=== PATIENT | male | born 1965 | race Caucasian/White ===

== ENCOUNTER 2018-09-14 18:06 | Inpatient (IN) | payer OTHER ==
--- NOTE | 2018-09-14 18:16 | PDOC ---
Rapid Medical Evaluation Chief Complaint: Pain, Acute Time Seen by Provider: 09/14/18 18:10 Medical Evaluation: 09/14/18 18:11 53 year old male send by urgent care for SBO. c/o abdominal pain since last night now with some relief in pain. history of SBO , polyps PE; patient alert ox3, abdomen distended A; abdominal pain P; labs CTAP with IV & PO contrast Discharge Disposition - Diagnosis Abdominal pain Qualifiers: Abdominal location: unspecified location Qualified Code(s): R10.9 - Unspecified abdominal pain - Referrals - Patient Instructions - Post Discharge Activity
[2018-09-14 18:51] LABS: BASO % 0.1 % (0-2.0); HEMATOCRIT 45.9 % (35.4-49); HEMOGLOBIN 15.5 GM/dL (11.7-16.9); LYMPH % 8.7 % (8-40); MCH 29.9 pg (25.7-33.7); MCHC 33.8 g/dl (32.0-35.9); MEAN CELL VOLUME 88.5 fl (80-96); MONO % 10.2 % (3.8-10.2); PLATELET COUNT 309 K/MM3 (134-434); RBC 5.19 M/mm3 (4.00-5.60); RDW 13.2 % (11.9-15.9); WHITE BLOOD COUNT 12.2 K/mm3 (4.0-10.0)
[2018-09-14 19:15] LABS: ALBUMIN 4.2 g/dl (3.4-5.0); ALK PHOS 56 U/L (45-117); ANION GAP 9 MMOL/L (8-16); BILIRUBIN,TOTAL 1.8 mg/dL (0.2-1); BLOOD UREA NITROGEN 16 mg/dL (7-18); CALCIUM 9.6 mg/dL (8.5-10.1); CHLORIDE 103 mmol/L (98-107); CO2 26 mmol/L (21-32); CREATININE 0.8 mg/dL (0.55-1.3); GLUCOSE,RANDOM 172 mg/dL (74-106); LIPASE 51 U/L (73-393); POTASSIUM 4.1 mmol/L (3.5-5.1); SGOT/AST 14 U/L (15-37); SGPT/ALT 47 U/L (13-61); SODIUM 138 mmol/L (136-145); TOT PROT 7.5 g/dl (6.4-8.2)
--- NOTE | 2018-09-14 19:15 | PDOC ---
History of Present Illness - General Chief Complaint: Pain, Acute Stated Complaint: SENT BY PCP Time Seen by Provider: 09/14/18 18:10 History Source: Patient Exam Limitations: No Limitations - History of Present Illness Initial Comments: Pt is a 53 yo M, with PMH of SBO (treated with NG decompression) and colon polyps (multiple polypectomy, last procedure Jan 2018), presenting with complaints of nausea, vomiting, and diarrhea since last night. Pt states he ate a calzone last night, "which maybe didn't settle well in his stomach," and soon after started having n/v/d. The pt was able to sleep, but had a few episodes of n/v today with minimal toleration of even PO fluid intake, which took him to the Urgent Care Center. Pt had one small, but normal solid BM this AM. Pt denies any fevers/chills, headache, vision changes, syncope, chest pain, palpitations, SOB, urinary symptoms, or leg swelling. Pt went to an urgent care center, who performed an abdominal US (no acute findings) and abdominal x-ray, which showed air fluid levels. Social: Pt denies any cigarette, alcohol, or drug use. Pt denies any recent travel or sick contacts. Surgical: L inguinal hernia repair (age 6), polypectomy -- no abdominal surgeries in the past Family: no relevant history. 09/19/18 13:53 Past History - Travel Traveled outside of the country in the last 30 days: No Close contact w/someone who was outside of country & ill: No - Past Medical History Allergies/Adverse Reactions: Allergies Allergy/AdvReac Type Severity Reaction Status Date / Time Penicillins Allergy Verified 09/14/18 18:11 Home Medications: Ambulatory Orders metFORMIN HCL [Metformin HCl] 500 mg PO BID #60 tablet 09/16/18 COPD: No Diabetes: Yes (borderline, no meds) HTN: No Hypercholesterolemia: No - Surgical History Abdominal Surgery: Yes (L inguinal hernia repair as ) Cholecystectomy: No GI Surgery: Yes (polypectomy) - Immunization History Immunization Up to Date: Yes - Suicide/Smoking/Psychosocial Hx Smoking History: Never smoked Hx Alcohol Use: No Drug/Substance Use Hx: No Review of Systems - Review of Systems Able to Perform ROS?: Yes Is the patient limited Swedish proficient: No Constitutional: Yes: Weight Stable. No: Chills, Diaphoresis, Fever, Loss of Appetite, Malaise, Weakness HEENTM: No: Recent change in vision, Nose Congestion, Difficulty Swallowing Respiratory: No: Cough, Orthopnea, Shortness of Breath Cardiac (ROS): No: Chest Pain, Edema, Irregular Heart Rate, Lightheadedness, Palpitations, Syncope, Chest Tightness ABD/GI: Yes: Diarrhea, Nausea, Poor Appetite, Poor Fluid Intake, Vomiting. No: Blood Streaked Bowels, Constipated, Indigestion, Abdominal cramping, Tarry Stools : No: Burning, Dysuria, Pain, Urgency, Testicular Swelling, Testicular Pain Musculoskeletal: No: Back Pain, Joint Pain, Muscle Weakness Integumentary: No: Rash Neurological: No: Headache, Numbness, Weakness, Dizziness Psychiatric: No: Sleep Pattern Change, Change in Appetite Endocrine: No: Increased Urine, Change in Weight Hematologic/Lymphatic: No: Anemia, Blood Clots, Easy Bleeding, Easy Bruising All Other Systems: Reviewed and Negative *Physical Exam - Vital Signs Last Vital Signs Temp Pulse Resp BP Pulse Ox 98.4 F 109 H 18 148/86 94 L 09/14/18 18:11 09/14/18 18:11 09/14/18 18:11 09/14/18 18:11 09/14/18 18:11 - Physical Exam Comments: HR 109, BP 148/86, RR 18, O2 94% on RA (98% on exam). Pt afebrile. Pt appears uncomfortable, but no active vomiting at this time. Overweight body habitus. Pt alert and oriented x3. culinary arts teacher generally intact, muscular strength and sensation intact. No midline spinal tenderness, step-offs, or crepitus. Head normocephalic, atraumatic. Eyes PERRLA, EOMI. Oropharynx without erythema or exudates, no LAD b/l. No nasal congestion, hearing intact. Clear heart sounds, S1/S2, no JVD, b/l pedal edema, or heart murmur. Clear lung sounds, no respiratory distress, wheezes, crackles, or accessory muscle use. L-sided abdominal tenderness to palpation, with mildly distended abdomen. No CVA tenderness to palpation, no rebound, no guarding. Abdomen soft and with normoactive bowel sounds. Skin without jaundice or rash. 09/14/18 19:15 09/14/18 20:52 ED Treatment Course - LABORATORY CBC & Chemistry Diagram: 09/16/18 06:25 09/16/18 06:25 - ADDITIONAL ORDERS Additional order review: Laboratory Results 09/14/18 18:23 Lactic Acid 1.5 09/14/18 18:23 RBC 5.19 MCV 88.5 MCHC 33.8 RDW 13.2 MPV 7.0 L Neutrophils % 81.0 Lymphocytes % 8.7 Monocytes % 10.2 Eosinophils % 0.0 Basophils % 0.1 - RADIOLOGY Radiology Studies Ordered: Category Date Time Status ABDOMEN & PELVIS CT WITH CONTR [CT] Stat CT Scan 09/14/18 18:15 Ordered Medical Decision Making - Medical Decision Making Pt was seen at bedside, also will be seen by attending Dr. Mustafa. Pt presenting with complaints of nausea, vomiting, and diarrhea since last night. Pt states he ate a calzone last night, "which maybe didn't settle well in his stomach," and soon after started having n/v/d. The pt was able to sleep, but had a few episodes of n/v today with mi, which took him to the Urgent Care Center. Pt had one small, but normal solid BM this AM. Pt denies any fevers/chills, headache, vision changes, syncope, chest pain, palpitations, SOB, urinary symptoms, or leg swelling. Pt went to an urgent care center, who performed an abdominal US (no acute findings) and abdominal x-ray, which showed air fluid levels. Ordered work-up including CBC, CMP, lactic acid, lipase, and CT abd/pelvis with IV contrast. Will continue to reassess pt and monitor for symptomatic improvement. 09/14/18 19:15 ECG: Sinus tachycardia (HR 102), intervals WNL (DE 164, QRS 92, QTc 435). No TWIs or significant ST segment changes. No prior for comparison. Preliminary read of CT abd/pelvis in ED with Dr. Mustafa shows air-fluid levels in the colon. Spoke with Dr. Hughes who will come to see the pt after she finishes in the OR. Requested NG tube and maintenance fluid. Sending type and screen and coags to lab. Providing pt 1 L IV NS bolus and maintenance fluids, and 4 mg IV zofran for nausea. Pt declined NG tube at this time, as he is not currently vomiting, nauseous, or having pain. Pt admitted to hospitalist service (Dr. Boone). Resting comfortably and pending bed upstairs. Pending read of CT scan. 09/14/18 20:49 09/19/18 12:34 09/19/18 13:50 *DC/Admit/Observation/Transfer Diagnosis at time of Disposition: Abdominal pain Qualifiers: Abdominal location: unspecified location Qualified Code(s): R10.9 - Unspecified abdominal pain Bowel obstruction Qualifiers: Intestinal obstruction type: unspecified Intestinal obstruction extent: unspecified extent Qualified Code(s): K56.609 - Unspecified intestinal obstruction, unspecified as to partial versus complete obstruction - Discharge Dispostion Condition at time of disposition: Stable Decision to Admit order: Yes - Referrals - Patient Instructions - Post Discharge Activity
--- NOTE | 2018-09-14 19:21 | PDOC ---
Attending Attestation - Resident Resident Name: JohnMarta - ED Attending Attestation I have performed the following: I have examined & evaluated the patient, The case was reviewed & discussed with the resident, I agree w/resident's findings & plan - HPI HPI: 09/14/18 19:21 53 year old male with h/o DM, HTN, SBO in 2017, inguinal hernia s/p repair, colon polyps, c/o generalized abdominal pain since last night, nausea and vomiting. this morning he started to experiencing more abdominal discomfort, a/w diarrhea x several episodes from last night to this morning. +NBNB emesis, mostly food material this morning. pt does not recall last BM. +suspicious food intake last night, he ate calzone and albanian fries, which he vomited up. pt admits similar sx of AP, n/v about 2 years ago - no surgeries. he has had 2 colonoscopies yearly x 2 years, with colonic polyps removed, GI Dr Paulino last visit in 01/2018 sent in from [facility] with dilated loops of bowel and unremarkable US. PSH: vasectomy, lt inguinal hernia no tobacco or ETOH use 09/14/18 20:13 09/14/18 20:22 - Physicial Exam PE: 09/14/18 20:21 NAD, well appearing, PERRL, EOMI, dry mucus membranes, nl conjunctiva, anicteric ; neck supple. lungs clear, +tachycardic,, abdomen soft +tympanic, nontender, no rebound or guarding, hypoactive BS. WAHL x4, no focal neuro deficits. No peripheral edema. normal color for ethnicity, WWP. - Medical Decision Making 09/14/18 20:22 hpi as documented VS reviewed, normotensive, +tachy likely from dehydration /n/v; no pain. DDx abdominal pain: Renal colic, biliary colic, metabolic/electrolyte derangements. GERD, PUD, esophageal spasm, pancreatitis, hepatitis, constipation , colitis, gastroenteritis, cholecystitis, UTI, pyelonephritis, ileus, SBO, hernia, appendicitis, diverticulitis, mesenteric ischemia. See HPI for details Vital signs reviewed, wnl. Prior notes reviewed, including admissions, discharges and consultations. laboratory results and imaging reviewed, basic labs and lytes wnl, notable for normal lactic. mild leukocytosis of 12K noted. LFTs and lipase normal ED course - IV zofran, for nausea; no vomiting episodes. abdomen soft, nontender, but tympanic. CT a/p with dilated small bowel loops with air/fluid levels >3cm, collapsed ileal and cecal loops of bowel d/w pt about NGT for bowel obstruction, however pt declines NGT placement, which is reasonable as nontender abdomen, no emesis here. bowel rest, NPO, supportive care surg cs with Dr Hughes, will come to eval. admit to hospitalist service, serial abdominal exams, NPO, supportive care admitting to Dr Boone 09/14/18 20:25 09/14/18 21:53
[2018-09-14] MEDS ORDERED: SODIUM CHLORIDE 0.9% 500 ML INFUS.BAG IV ONE (19:24)
[2018-09-14] MEDS ORDERED: ONDANSETRON 4 MG/2 ML VIAL IVPUSH ONE (19:24)
[2018-09-14] MEDS ORDERED: ONDANSETRON 4 MG/2 ML VIAL ONE (19:34)
[2018-09-14] MEDS: SODIUM CHLORIDE 1,000 ML IV SCH (20:12)
[2018-09-14] MEDS ORDERED: SODIUM CHLORIDE 1,000 ML IV SCH ×2 (20:15→21:30)
--- NOTE | 2018-09-14 21:12 | HP ---
CHIEF COMPLAINT: N/V PCP: HISTORY OF PRESENT ILLNESS: 53 y/o M with h/o DM, SBO 2017, L inguinal hernia s/p repair (age 6), hx colon polyps and polypectomy, who presents to the ED c/o nausea, vomiting, and generalized abdominal pain that began last night. As per pt, at 8:30PM last night, he ate a calzone and urdu fries for dinner. Shortly after, he went to sleep and woke up with generalized abdominal pain and nausea. He had four episodes of NBNB emesis. States that he was able to fall back asleep, however felt uneasy. This AM, he ate breakfast, had a BM and went to work. While at work , he had another BM. States that he made it through the work day, however when he was driving home, he became increasingly nauseous and pulled to the side of the road, vomiting three additional times. was concerned about him, so they went to urgent care for eval. While there his AXR showed dilated bowel loops and he was referred to come here for further eval. During this time, denies FISCHER, fever, chills, SOB, chest pain or pressure, or changes in urinary function. As per pt, he had one other episode of SBO in 2017. During that time, he was hospitalized at [facility] and had an NGT placed for decompression. Episode was "worse " than current one. States that afterward, he was recommended to have a colonoscopy. Had multiple polyps removed. Is supposed to have colonoscopies yearly. Has also followed with Dr. Paulino recently and had additional polypectomies. ER course was notable for: (1)zofran 4mg x 1 (2) refusal of NGT (3) Recent Travel: denies PAST MEDICAL HISTORY: as above PAST SURGICAL HISTORY: as above: L inguinal hernia s/p repair (age 6) Social History: lives at home with family. works in [place]. Smoking: denies Alcohol: rarely 1 drink at events Drugs: denies Family History: mom-DM, father- DM , aunt- cancer. does not know the type Allergies Penicillins Allergy (Verified 09/14/18 18:11) - hives, rash, facial swelling HOME MEDICATIONS: not on any home meds verified with patient REVIEW OF SYSTEMS CONSTITUTIONAL: Absent: fever, chills, diaphoresis, generalized weakness, malaise, loss of appetite, weight change HEENT: Absent: rhinorrhea, nasal congestion, throat pain, throat swelling, difficulty swallowing, mouth swelling, ear pain, eye pain, visual changes CARDIOVASCULAR: Absent: chest pain, syncope, palpitations, irregular heart rate, lightheadedness , peripheral edema RESPIRATORY: Absent: cough, shortness of breath, dyspnea with exertion, orthopnea, wheezing, stridor, hemoptysis GASTROINTESTINAL: Absent: abdominal pain, abdominal distension, nausea, vomiting, diarrhea, constipation, melena, hematochezia GENITOURINARY: Absent: dysuria, frequency, urgency, hesitancy, hematuria, flank pain, genital pain MUSCULOSKELETAL: Absent: myalgia, arthralgia, joint swelling, back pain, neck pain SKIN: Absent: rash, itching, pallor HEMATOLOGIC/IMMUNOLOGIC: Absent: easy bleeding, easy bruising, lymphadenopathy, frequent infections ENDOCRINE: Absent: unexplained weight gain, unexplained weight loss, heat intolerance, cold intolerance NEUROLOGIC: Absent: headache, focal weakness or paresthesias, dizziness, unsteady gait, seizure, mental status changes, bladder or bowel incontinence PSYCHIATRIC: Absent: anxiety, depression, suicidal or homicidal ideation, hallucinations. PHYSICAL EXAMINATION Vital Signs - 24 hr 09/14/18 18:11 Temperature 98.4 F Pulse Rate 109 H Respiratory 18 Rate Blood Pressure 148/86 O2 Sat by Pulse 94 L Oximetry (%) GENERAL: Pleasant. AAOx 3. in no acute distress. resting in bed HEAD: Normal with no signs of trauma. EYES: Pupils equal, round and reactive to light, extraocular movements intact, sclera anicteric, conjunctiva clear. EARS, NOSE, THROAT: Ears normal, nares patent, oropharynx clear without exudates. Moist mucous membranes. NECK: Normal range of motion, supple LUNGS: Breath sounds equal, clear to auscultation bilaterally. No wheezes, and no crackles. No accessory muscle use. HEART: Regular rate and rhythm, normal S1 and S2 without murmur, rub or gallop. ABDOMEN: Soft, obese, nontender, + mildly distended. hypoactive bowel sounds LOWER EXTREMITIES: 2+ pt pulses, warm, well-perfused. No calf tenderness. No peripheral edema. NEUROLOGICAL: Cranial nerves II-XII intact. Normal speech. PSYCHIATRIC: Cooperative. Good eye contact. SKIN: Warm, dry, normal turgor Laboratory Results 09/14/18 09/14/18 09/14/18 18:23 18:23 18:23 WBC 12.2 H RBC 5.19 Hgb 15.5 Hct 45.9 MCV 88.5 MCH 29.9 MCHC 33.8 RDW 13.2 Plt Count 309 MPV 7.0 L Absolute Neuts (auto) 9.9 H Neutrophils % 81.0 Lymphocytes % 8.7 Monocytes % 10.2 Eosinophils % 0.0 Basophils % 0.1 Nucleated RBC % 0 Sodium 138 Potassium 4.1 Chloride 103 Carbon Dioxide 26 Anion Gap 9 BUN 16 Creatinine 0.8 Creat Clearance w eGFR 101.92 Random Glucose 172 H Lactic Acid 1.5 Calcium 9.6 Total Bilirubin 1.8 H AST 14 L ALT 47 Alkaline Phosphatase 56 Total Protein 7.5 Albumin 4.2 Lipase 51 L EKG: no acute ST- T wave changes.qtc 430ms CTAP w/ contrast: multiple dilated jejunal bowel loops seen with max luminal diameter of 4cm. ileal bowel loops demonstrate collapsed appearance. ileal loops with mild concentric wall thickening which may be acute or chronic in nature. possible mild deformity of the cecum. no pneumoperitoneum, abscess, or free fluid. mild colonic diverticulosis. diffuse fatty liver. 1.4cm L adrenal nodule nonspecific. ASSESSMENT/PLAN: 53 y/o M with h/o DM, SBO 2017, L inguinal hernia s/p repair (age 6), hx colon polyps and polypectomy, who presents to the ED c/o nausea, vomiting, and generalized abdominal pain that began last night. #Mid to distal SBO -with past SBO in 2017, poss adhesions from past hernia repair -able to have BM, however with nausea - likely mild SBO. lactic WNL. -refusing NGT placement -will hydrate with IV NS -zofran PRN. qtc 430ms -protonix 40mg IVP qd -sx: Dr. Hughes consulted by ED. serial abdominal exams. will order AXR for AM with PO contrast to check on status of SBO as per surgery. #DM -not on tx at home -a1c 6.8 -ISS, BGM ACHS. #New HTN -may be 2/2 pain -will continue to follow. may need to start on agent if does not improve and if not alleviated by lifestyle mods. #F/E/N IV NS 100 cc/hr continue to follow lytes NPO #PPX DVT: SCD's in case procedure needed GI: protonix #Dispo admit to med-surg anticipate d/c if nausea improves and AXR better. pending further surgical recs. Visit type - Emergency Visit Emergency Visit: Yes ED Registration Date: 09/14/18 Care time: The patient presented to the Emergency Department on the above date and was hospitalized for further evaluation of their emergent condition. - New Patient This patient is new to me today: Yes Date on this admission: 09/15/18 - Critical Care Critical Care patient: No
[2018-09-14] MEDS ORDERED: LACTATED RINGERS SOLUTION 1,000 ML IV SCH (21:15)
[2018-09-14] MEDS ORDERED: ONDANSETRON 4 MG/2 ML VIAL IVPUSH PRN (21:22)
[2018-09-14 21:32] LABS: INR 1.25 (0.83-1.09); PROTHROMBIN TIME (PATIENT) 14.8 SEC (9.7-13.0)
[2018-09-14] MEDS: PANTOPRAZOLE SODIUM 40 MG VIAL IVPUSH SCH (21:54)
[2018-09-14] MEDS ORDERED: PANTOPRAZOLE SODIUM 40 MG VIAL ONE (21:56)
--- NOTE | 2018-09-15 00:36 | CONSULT ---
Consult Consult Specialty:: General Surgery Referred by:: Dr. Lopez Reason for Consultation:: SBO - History of Present Illness Chief Complaint: vomiting, diarrhea, abdominal discomfort History of Present Illness: 53yo M with h/o colon polyps, deviated septum s/p nasal surgery, LIH repair at 6yo, tonsillectomy, no abdominal surgeries, h/o distal SBO 12/15 treated with NG decompression at [facility], followed by colonoscopy with polyp removals. He presented to ER with multiple episodes of vomiting starting yesterday pm, associated with some generalized abdominal pain/discomfort, loose/pasty stool, no nausea, no f/c. He initially thought what he ate for dinner yesterday may not have settled well ( and ), as it came back up, and he had some trouble sleeping but ultimately was able to. This morning, he had creamed corn and OJ for breakfast, and went to work, but left early, and while driving home, had to stop to throw up again. Drank just water and some Gatorade since breakfast. He went to urgent care, where he vomited again, and was sent to ER for evaluation. He was afebrile, with wbc 12.2, normal lactate, and CT with IV but no PO contrast was done, showing multiple dilated proximal small bowel loops , mainly in left abdomen, with decompressed distal loops with concentric wall thickening of unclear significance. Surgery was asked to assess. He is seen and examined in ER holding. Declined NGT from ER/medicine. He states he is not currently in pain or nauseated. Voided light yellow urine. - History Source History Provided By: Patient Limitations to Obtaining History: No Limitations - Past Medical History Gastrointestinal: Yes: Other (colon polyps) ENT: Yes: Other (deviated septum s/p surgery) Additional Medical History: broken left arm, needed cast only - Past Surgical History Past Surgical History: Yes: Colonoscopy, Hernia Repair (left inguinal at 6yo), Tonsillectomy - Alcohol/Substance Use Hx Alcohol Use: Yes (occasionally) History of Substance Use: reports: None - Smoking History Smoking history: Never smoked Have you smoked in the past 12 months: No - Social History Usual Living Arrangement: With Spouse ADL: Independent Home Medications - Allergies Allergies/Adverse Reactions: Allergies Allergy/AdvReac Type Severity Reaction Status Date / Time Penicillins Allergy Verified 09/14/18 18:11 - Home Medications Home Medications: Ambulatory Orders NK [No Known Home Medication] 09/15/18 Family Disease History - Family Disease History Family History: Unremarkable (noncontributory) Review of Systems - Review of Systems Constitutional: denies: Chills, Fever, Loss of Appetite Eyes: reports: Other (wears glasses). denies: Blurred Vision, Recent Change in Vision HENT: denies: Difficult Swallowing, Throat Pain Neck: denies: Swollen Glands, Tenderness Cardiovascular: denies: Chest Pain, Palpitations Respiratory: denies: Cough, SOB Gastrointestinal: reports: Abdominal Pain (with hpi), Diarrhea (with hpi), Vomiting (with hpi). denies: Constipation, Nausea, Vomiting Blood Genitourinary: denies: Burning, Dysuria Musculoskeletal: reports: Back Pain (at times, not now). denies: Joint Pain, Muscle Pain Integumentary: denies: Change in Color, Rash Neurological: denies: Dizziness, Headache Physical Exam Vital Signs: Vital Signs Temperature 99.1 F 09/14/18 23:59 Pulse Rate 92 H 09/14/18 23:59 Respiratory Rate 18 09/14/18 23:59 Blood Pressure 139/72 09/14/18 23:59 O2 Sat by Pulse Oximetry (%) 100 09/14/18 21:05 Constitutional: Yes: Well Nourished, No Distress, Calm Eyes: Yes: Conjunctiva Clear, EOM Intact HENT: Yes: Atraumatic, Normocephalic Neck: Yes: Supple, Trachea Midline Cardiovascular: Yes: Regular Rate and Rhythm, Tachycardia (slight) Respiratory: Yes: Regular, CTA Bilaterally Gastrointestinal: Yes: Normal Bowel Sounds, Soft, Distention (some tympany on left side), Tenderness (mild, LUQ). No: Tenderness, Rebound ...Rectal Exam: Yes: Deferred Renal/: No: CVA Tenderness - Left, CVA Tenderness - Right Musculoskeletal: No: Joint Stiffness, Joint Swelling Extremities: No: Cool, Cyanosis Edema: No Peripheral Pulses WNL: No Integumentary: No: Jaundice, Rash Neurological: Yes: Alert, Oriented Psychiatric: Yes: Alert, Oriented Labs: CBC, BMP 09/14/18 18:23 09/14/18 18:23 INR, PTT INR 1.25 (0.83-1.09) H 09/14/18 20:56 Imaging - Results Cat Scan: Report Reviewed, Image Reviewed (images reviewed - dilated proximal to mid-small bowel loops, mostly in left abdomen, with collapsed distal and ileal loops; concentric wall thickening of ileal loops, no free fluid or air, appendix not definitively seen but possible small structure with some air in it noted in the region) Problem List - Problems (1) Small bowel obstruction Assessment/Plan: admitted to medicine no evidence of ischemia, but in absence of previous abdominal surgery, etiology of SBO unclear and may require OR discussed with patient possible need for exploratory surgery pt reluctant to take NGT, but will if he has to NPO/IVF - hydrate generously GI/DVT prophylaxis need to obtain records from [facility] related to previous SBO - unclear why operation not done then will give oral contrast and follow through with AXR, possibly repeat CT NGT if N/V will f/u in am discussed with Dr. Boone, seen with her at bedside Code(s): K56.609 - UNSP INTESTNL OBST, UNSP TO PARTIAL VERSUS COMPLETE OBST (2) Generalized abdominal pain Code(s): R10.84 - GENERALIZED ABDOMINAL PAIN (3) Vomiting alone Code(s): R11.11 - VOMITING WITHOUT NAUSEA Qualifiers: Vomiting type: unspecified Vomiting Intractability: non-intractable Qualified Code(s): R11.11 - Vomiting without nausea (4) Diarrhea Code(s): R19.7 - DIARRHEA, UNSPECIFIED Qualifiers: Diarrhea type: unspecified type Qualified Code(s): R19.7 - Diarrhea, unspecified
--- NOTE | 2018-09-15 00:38 | PN ---
Teaching Attending Note Name of Resident: Alma Law ATTENDING PHYSICIAN STATEMENT I saw and evaluated the patient. I reviewed the resident's note and discussed the case with the resident. I agree with the resident's findings and plan as documented. N/V/ and diarrhea for 1 day SUBJECTIVE: He is a 53 y/o M w DM, SBO [address] [facility], L inguinal hernia s/p repair (age 6), hx colon polyps and polypectomy( after the SBO) P/W generalized abdominal pain , N/V/diarrhea after eating outside food, his son did not have the symptoms. He could tolerate some liquid during the day but vomited after couple of hours, states that last time he vomited was 8 hours ago. in the ED he had abdominal CT and was found to have small bowel dilated loops and surgery service was consulted for SBO. at this time has has no GI complaints and abdomen is soft. OBJECTIVE: Last Vital Signs Temp Pulse Resp BP Pulse Ox 99.1 F 92 H 18 139/72 100 09/14/18 23:59 09/14/18 23:59 09/14/18 23:59 09/14/18 23:59 09/14/18 21:05 in no distress, on IVF MMM CVS;S1S2 CTAB Abd:BS hypo. NT/ND ASSESSMENT AND PLAN: 53 y/o M W DM HX of SBO P/W N/V/D after eating outside food, now with concern for SBO on imaging, he is in no distress at this time. case discussed with surgery team and plan for Abdominal xray with PO contrast at 6 am in the morning and if still obstructed likely to get surgical intervention.NPO for now with IV PPI. is well hydrated at this time. will C/W IV fluids maintenance at this time DM: will send A1C and monitor FS at this time.
[2018-09-15] MEDS: INSULIN SLIDING SCALE (NOVOLOG) 1 VIAL SQ SCH ×5 (01:07→21:41)
[2018-09-15] MEDS ORDERED: HEPARIN NA (PORCINE) 5,000 UNITS/ML 1ML VIAL SQ SCH (06:00)
[2018-09-15 07:38] LABS: BASO % 0.3 % (0-2.0); EOS % 0.6 % (0-4.5); HEMATOCRIT 42.8 % (35.4-49); HEMOGLOBIN 14.7 GM/dL (11.7-16.9); LYMPH % 31.1 % (8-40); MCH 30.4 pg (25.7-33.7); MCHC 34.4 g/dl (32.0-35.9); MEAN CELL VOLUME 88.3 fl (80-96); MEAN PLT VOLUME 6.7 fl (7.5-11.1); MONO % 14.6 % (3.8-10.2); NEUT % 53.4 % (42.8-82.8); PLATELET COUNT 320 K/MM3 (134-434); RBC 4.84 M/mm3 (4.00-5.60); RDW 13.1 % (11.9-15.9); WHITE BLOOD COUNT 9.7 K/mm3 (4.0-10.0)
[2018-09-15 08:02] LABS: ANION GAP 6 MMOL/L (8-16); BLOOD UREA NITROGEN 13 mg/dL (7-18); CALCIUM 8.4 mg/dL (8.5-10.1); CHLORIDE 107 mmol/L (98-107); CO2 27 mmol/L (21-32); CREATININE 0.8 mg/dL (0.55-1.3); GLUCOSE,RANDOM 138 mg/dL (74-106); MAGNESIUM 2.2 mg/dL (1.8-2.4); PHOSPHOROUS 2.6 mg/dL (2.5-4.9); POTASSIUM 3.8 mmol/L (3.5-5.1); SODIUM 140 mmol/L (136-145)
[2018-09-15 08:28] LABS: PH,URINE 5.5 (5.0-8.0); URINE APPEARANCE CLEAR; URINE BILIRUBIN NEGATIVE (NEGATIVE); URINE COLOR DK YELLOW; URINE GLUCOSE (UA) NEGATIVE (NEGATIVE); URINE KETONE TRACE (NEGATIVE); URINE PROTEIN TRACE (NEGATIVE); URINE UROBILINOGEN 0.2 mg/dL (0.2-1.0)
[2018-09-15 08:29] LABS: EPI CELLS 1.3 /HPF (0-5/HPF); URINE BACTERIA 0.7 /hpf (NEGATIVE); URINE CASTS 10.53 /lpf (0-8); URINE LEUK ESTERASE NEGATIVE (NEGATIVE); URINE NITRITE NEGATIVE (NEGATIVE); URINE RBC 5.4 /hpf (0-4)
[2018-09-15] MEDS ORDERED: FLU VACCINE QUAD 60 MCG/0.5 ML (MDV 18-19) IM ONE (10:00)
[2018-09-15] MEDS: PANTOPRAZOLE SODIUM 40 MG VIAL IVPUSH SCH (11:04)
[2018-09-15] MEDS: SODIUM CHLORIDE 0.45%/POT 20 MEQ/1,000 ML INFUS.BAG IV SCH ×2 (11:14→21:01)
--- NOTE | 2018-09-15 12:28 | EKG ---
Test Reason : Blood Pressure : / mmHG Vent. Rate : 102 BPM Atrial Rate : 102 BPM P-R Int : 164 ms QRS Dur : 092 ms QT Int : 334 ms P-R-T Axes : 054 003 034 degrees QTc Int : 435 ms SINUS TACHYCARDIA NONSPECIFIC T WAVE ABNORMALITY ABNORMAL ECG NO PREVIOUS ECGS AVAILABLE Confirmed by JELLY BAILEY, KHURRAM ([id number]) on 09/15/2018 12:27:47 PM Referred By: Confirmed By:KHURRAM REAVES MD
--- NOTE | 2018-09-15 14:25 | PN ---
Physical Exam: SUBJECTIVE: Patient seen and examined this AM. Had a small BM since admission. Says he is feeling better and passing flatus. Denies any nausea or vomiting. OBJECTIVE: Vital Signs Period Temp Pulse Resp BP Sys/Galindo Pulse Ox Last 24 Hr 97.4 F-99.1 F 73-109 16-18 113-148/54-87 94-100 GENERAL: A&Ox3, NAD HEAD: NCAT EYES: PERRL, EOMI ENT: Moist mucous membranes NECK: Supple LUNGS: Diminished breath sounds at the bases, no wheezes, no crackles HEART: Regular rate and rhythm, S1, S2 without murmur ABDOMEN: Obese, Soft, Mild tenderness to palpation in the Left, mild distension , + bowel sounds, no guarding EXTREMITIES: no edema NEUROLOGICAL: Cranial nerves II through XII grossly intact SKIN: Warm, dry Laboratory Results - last 24 hr 09/14/18 09/14/18 09/15/18 21:08 21:44 01:06 WBC RBC Hgb Hct MCV MCH MCHC RDW Plt Count MPV Absolute Neuts (auto) Neutrophils % Lymphocytes % Monocytes % Eosinophils % Basophils % Nucleated RBC % PT with INR INR Sodium Potassium Chloride Carbon Dioxide Anion Gap BUN Creatinine Creat Clearance w eGFR POC Glucometer 138 Random Glucose Hemoglobin A1c % 6.8 H Lactic Acid Calcium Phosphorus Magnesium Total Bilirubin AST ALT Alkaline Phosphatase Total Protein Albumin Lipase Urine Color Urine Appearance Urine pH Ur Specific [place] Urine Protein Urine Glucose (UA) Urine Ketones Urine Blood Urine Nitrite Urine Bilirubin Urine Urobilinogen Ur Leukocyte Esterase Urine WBC (Auto) Urine RBC (Auto) Urine Casts (Auto) U Epithel Cells (Auto) Urine Bacteria (Auto) Blood Type A POSITIVE Antibody Screen 09/15/18 09/15/18 09/15/18 06:09 07:00 07:00 WBC 9.7 RBC 4.84 Hgb 14.7 Hct 42.8 MCV 88.3 MCH 30.4 MCHC 34.4 RDW 13.1 Plt Count 320 MPV 6.7 L Absolute Neuts (auto) 5.2 Neutrophils % 53.4 D Lymphocytes % 31.1 D Monocytes % 14.6 H Eosinophils % 0.6 D Basophils % 0.3 Nucleated RBC % 0 PT with INR INR Sodium 140 Potassium 3.8 Chloride 107 Carbon Dioxide 27 Anion Gap 6 L BUN 13 Creatinine 0.8 Creat Clearance w eGFR 101.92 POC Glucometer 130 Random Glucose 138 H Hemoglobin A1c % Lactic Acid Calcium 8.4 L Phosphorus 2.6 Magnesium 2.2 Total Bilirubin AST ALT Alkaline Phosphatase Total Protein Albumin Lipase Urine Color Urine Appearance Urine pH Ur Specific [place] Urine Protein Urine Glucose (UA) Urine Ketones Urine Blood Urine Nitrite Urine Bilirubin Urine Urobilinogen Ur Leukocyte Esterase Urine WBC (Auto) Urine RBC (Auto) Urine Casts (Auto) U Epithel Cells (Auto) Urine Bacteria (Auto) Blood Type Antibody Screen Active Medications Potassium Chloride/Sodium Chloride (1/2ns+20meq Kcl) 20 meq in 1,000 mls @ 125 mls/hr IV ASDIR [facility] Last Admin: 09/15/18 11:14 Dose: 125 mls/hr Insulin Aspart (Novolog Vial Sliding Scale -) 1 vial SQ ACHS [facility]; Protocol Last Admin: 09/15/18 11:50 Dose: Not Given Ondansetron HCl (Zofran Injection) 4 mg IVPUSH Q8H PRN PRN Reason: NAUSEA Pantoprazole Sodium (Protonix Iv) 40 mg IVPUSH DAILY [facility] Last Admin: 09/15/18 11:04 Dose: 40 mg IMAGING: -CT A/P with contrast: A mid to distal small bowel obstruction is noted as discussed above. Diffuse hepatic steatosis. A 1.4 cm left adrenal nodule is seen which is nonspecific on the basis of the current exam although very likely representing an adenoma on a statistical basis. Biochemical evaluation is suggested. Direct comparison with previous studies is suggested if available from a different facility. If prior studies are not available correlation with 3 month follow-up noncontrast MRI or CT is suggested. -Abdominal XRay: Findings again compatible with small bowel obstruction with retained contrast. -EKG: SINUS TACHYCARDIA, VR 102, QTc 435 ASSESSMENT/PLAN: 53 y/o M with PMHx DM, SBO (Resolved without surgery in 2017), L inguinal hernia (s/p repair at age 6), Polypectomy was admitted for SBO. #SBO--Passing Flatus and having BM this AM -Unclear etiology -Imaging noted above -General Surgery (Dr. Hughes) consulted, appreciate rec's -Keep NPO -1/2 NS + 20meq Kcl @ 125 mls/hr -Ondansetron PRN -Pantoprazole 40mg IV Daily -Serial abdominal exams -Will attempt to obtain Records from Previous SBO hospitalization at [facility] -Currently refusing NGT however patient aware this is needed if he begins to experience Nausea or Vomiting #DM -A1c 6.8 -ISS, BGMs ACHS #FEN -1/2 NS + 20meq Kcl @ 125 mls/hr -lytes wnl -NPO #PPX -DVT: SCD's -GI: Pantoprazole Visit type - Emergency Visit Emergency Visit: Yes ED Registration Date: 09/14/18 Care time: The patient presented to the Emergency Department on the above date and was hospitalized for further evaluation of their emergent condition. - New Patient This patient is new to me today: Yes Date on this admission: 09/15/18 - Critical Care Critical Care patient: No - Discharge Referral Referred to [facility] Med P.C.: No
--- NOTE | 2018-09-15 16:59 | PN ---
Progress Note, Physician History of Present Illness: 53yo M with h/o colon polyps, deviated septum s/p nasal surgery, LIH repair at 6yo, tonsillectomy, no abdominal surgeries, h/o distal SBO 12/15 treated with NG decompression at [facility], followed by colonoscopy in and with polyp removals. He was admitted with CT with IV but no PO contrast showing multiple dilated proximal small bowel loops, mainly in left abdomen, with decompressed distal loops with concentric wall thickening of unclear significance. AXR done early this morning after oral contrast was given show persistent SBO picture, dilated loops with retained contrast, some air and stool in colon. Pt has had BMs more than once today, more recently was diarrhea. Passing gas. No pain at this time. Seen and examined earlier this morning and again now in bed. - Current Medication List Current Medications: Active Medications Potassium Chloride/Sodium Chloride (1/2ns+20meq Kcl) 20 meq in 1,000 mls @ 125 mls/hr IV ASDIR [facility] Last Admin: 09/15/18 11:14 Dose: 125 mls/hr Insulin Aspart (Novolog Vial Sliding Scale -) 1 vial SQ ACHS [facility]; Protocol Last Admin: 09/15/18 11:50 Dose: Not Given Ondansetron HCl (Zofran Injection) 4 mg IVPUSH Q8H PRN PRN Reason: NAUSEA Pantoprazole Sodium (Protonix Iv) 40 mg IVPUSH DAILY [facility] Last Admin: 09/15/18 11:04 Dose: 40 mg - Objective Vital Signs: Vital Signs Temperature 98.1 F 09/15/18 14:34 Pulse Rate 80 09/15/18 14:34 Respiratory Rate 20 09/15/18 14:34 Blood Pressure 116/69 09/15/18 14:34 O2 Sat by Pulse Oximetry (%) 100 09/15/18 09:00 Constitutional: Yes: Well Nourished, No Distress, Calm Eyes: Yes: Conjunctiva Clear, EOM Intact HENT: Yes: Atraumatic, Normocephalic Neck: Yes: Supple, Trachea Midline Gastrointestinal: Yes: Soft, Distention (mild, less tympany now than early this am). No: Tenderness (mild left side earlier, no real tenderness now) Extremities: No: Cool, Cyanosis Integumentary: No: Jaundice, Rash Neurological: Yes: Alert, Oriented Labs: CBC, BMP 09/15/18 07:00 09/15/18 07:00 - ....Imaging X-ray: Pending (f/u KUB pending now), Report Reviewed, Image Reviewed (AXR after oral contrast shows dilated SB loops with retained contrast, mostly on L side, + air/stool in colon) Problem List - Problems (1) Small bowel obstruction Assessment/Plan: admitted to medicine no evidence of ischemia, but in absence of previous abdominal surgery, etiology of SBO unclear and may require OR discussed with patient possible need for exploratory surgery pt reluctant to take NGT, but will if he has to not an acute abdomen, no pain/tenderness at this time, less distention and + bowel function with liquid stool passing - could mean contrast has progressed distally continue NPO/IVF for now - hydrating generously GI/DVT prophylaxis records from [facility] finally here - reviewed - appears he was treated for SBO conservatively "in context of previous surgery," though LIHR and vasectomy would not have led to intraabdominal adhesions will get f/u AXR, repeat CT if still with obstructive picture NGT if N/V discussed with Dr. Corona Code(s): K56.609 - UNSP INTESTNL OBST, UNSP TO PARTIAL VERSUS COMPLETE OBST (2) Generalized abdominal pain Code(s): R10.84 - GENERALIZED ABDOMINAL PAIN (3) Vomiting alone Code(s): R11.11 - VOMITING WITHOUT NAUSEA Qualifiers: Vomiting type: unspecified Vomiting Intractability: non-intractable Qualified Code(s): R11.11 - Vomiting without nausea (4) Diarrhea Code(s): R19.7 - DIARRHEA, UNSPECIFIED Qualifiers: Diarrhea type: unspecified type Qualified Code(s): R19.7 - Diarrhea, unspecified
--- NOTE | 2018-09-15 18:53 | PN ---
Teaching Attending Note Name of Resident: Magdalene Arias ATTENDING PHYSICIAN STATEMENT I saw and evaluated the patient. I reviewed the resident's note and discussed the case with the resident. I agree with the resident's findings and plan as documented. SUBJECTIVE: seen and examined, feeling well, had a BM this AM and passing flatus. no abdominal pain, nausea or vomiting. OBJECTIVE: Vital Signs - 24 hr 09/14/18 09/14/18 09/14/18 21:00 21:05 23:24 Temperature 99.1 F Pulse Rate 92 H Pulse Rate [ 82 Apical] Respiratory 16 18 Rate Blood Pressure 139/72 Blood Pressure 135/87 [Right Arm] O2 Sat by Pulse 100 100 Oximetry (%) 09/14/18 09/14/18 09/15/18 23:35 23:59 02:00 Temperature 99.1 F 98.9 F Pulse Rate 92 H 87 Pulse Rate [ Apical] Respiratory 18 18 Rate Blood Pressure 139/72 113/54 L Blood Pressure [Right Arm] O2 Sat by Pulse 100 Oximetry (%) 09/15/18 09/15/18 09/15/18 06:00 09:00 09:23 Temperature 97.4 F L 97.4 F L Pulse Rate 86 73 Pulse Rate [ Apical] Respiratory 18 18 Rate Blood Pressure 117/62 140/79 Blood Pressure [Right Arm] O2 Sat by Pulse 100 Oximetry (%) 09/15/18 09/15/18 14:34 18:00 Temperature 98.1 F 98.2 F Pulse Rate 80 73 Pulse Rate [ Apical] Respiratory 20 18 Rate Blood Pressure 116/69 128/70 Blood Pressure [Right Arm] O2 Sat by Pulse Oximetry (%) PHYSICAL EXAM: GENERAL: NAD CVS: S1S2, RRR, NO M/R/G LUNGS: CTA B/L, UNLABORED, NO W/R/R ABDOMEN: MILD DISTENTION, SOFT, NONTENDER, NO GUARDING OR REBOUND EXT: NO EDEMA, 2+DPP Laboratory Results - last 24 hr 09/14/18 09/14/18 09/14/18 07:10 18:23 18:23 WBC 12.2 H RBC 5.19 Hgb 15.5 Hct 45.9 MCV 88.5 MCH 29.9 MCHC 33.8 RDW 13.2 Plt Count 309 MPV 7.0 L Absolute Neuts (auto) 9.9 H Neutrophils % 81.0 Lymphocytes % 8.7 Monocytes % 10.2 Eosinophils % 0.0 Basophils % 0.1 Nucleated RBC % 0 PT with INR INR Sodium 138 Potassium 4.1 Chloride 103 Carbon Dioxide 26 Anion Gap 9 BUN 16 Creatinine 0.8 Creat Clearance w eGFR 101.92 POC Glucometer Random Glucose 172 H Hemoglobin A1c % Lactic Acid Calcium 9.6 Phosphorus Magnesium Total Bilirubin 1.8 H AST 14 L ALT 47 Alkaline Phosphatase 56 Total Protein 7.5 Albumin 4.2 Lipase 51 L Urine Color Dk yellow Urine Appearance Clear Urine pH 5.5 Ur Specific [place] 1.059 H Urine Protein Trace Urine Glucose (UA) Negative Urine Ketones Trace H Urine Blood Trace Urine Nitrite Negative Urine Bilirubin Negative Urine Urobilinogen 0.2 Ur Leukocyte Esterase Negative Urine WBC (Auto) 1.0 Urine RBC (Auto) 5.4 Urine Casts (Auto) 10.53 U Epithel Cells (Auto) 1.3 Urine Bacteria (Auto) 0.7 Blood Type Antibody Screen 09/14/18 09/14/18 09/14/18 18:23 20:56 20:56 WBC RBC Hgb Hct MCV MCH MCHC RDW Plt Count MPV Absolute Neuts (auto) Neutrophils % Lymphocytes % Monocytes % Eosinophils % Basophils % Nucleated RBC % PT with INR 14.80 H INR 1.25 H Sodium Potassium Chloride Carbon Dioxide Anion Gap BUN Creatinine Creat Clearance w eGFR POC Glucometer Random Glucose Hemoglobin A1c % Lactic Acid 1.5 Calcium Phosphorus Magnesium Total Bilirubin AST ALT Alkaline Phosphatase Total Protein Albumin Lipase Urine Color Urine Appearance Urine pH Ur Specific [place] Urine Protein Urine Glucose (UA) Urine Ketones Urine Blood Urine Nitrite Urine Bilirubin Urine Urobilinogen Ur Leukocyte Esterase Urine WBC (Auto) Urine RBC (Auto) Urine Casts (Auto) U Epithel Cells (Auto) Urine Bacteria (Auto) Blood Type A POSITIVE Antibody Screen Negative 09/14/18 09/14/18 09/15/18 21:08 21:44 01:06 WBC RBC Hgb Hct MCV MCH MCHC RDW Plt Count MPV Absolute Neuts (auto) Neutrophils % Lymphocytes % Monocytes % Eosinophils % Basophils % Nucleated RBC % PT with INR INR Sodium Potassium Chloride Carbon Dioxide Anion Gap BUN Creatinine Creat Clearance w eGFR POC Glucometer 138 Random Glucose Hemoglobin A1c % 6.8 H Lactic Acid Calcium Phosphorus Magnesium Total Bilirubin AST ALT Alkaline Phosphatase Total Protein Albumin Lipase Urine Color Urine Appearance Urine pH Ur Specific [place] Urine Protein Urine Glucose (UA) Urine Ketones Urine Blood Urine Nitrite Urine Bilirubin Urine Urobilinogen Ur Leukocyte Esterase Urine WBC (Auto) Urine RBC (Auto) Urine Casts (Auto) U Epithel Cells (Auto) Urine Bacteria (Auto) Blood Type A POSITIVE Antibody Screen 09/15/18 09/15/18 09/15/18 06:09 07:00 07:00 WBC 9.7 RBC 4.84 Hgb 14.7 Hct 42.8 MCV 88.3 MCH 30.4 MCHC 34.4 RDW 13.1 Plt Count 320 MPV 6.7 L Absolute Neuts (auto) 5.2 Neutrophils % 53.4 D Lymphocytes % 31.1 D Monocytes % 14.6 H Eosinophils % 0.6 D Basophils % 0.3 Nucleated RBC % 0 PT with INR INR Sodium 140 Potassium 3.8 Chloride 107 Carbon Dioxide 27 Anion Gap 6 L BUN 13 Creatinine 0.8 Creat Clearance w eGFR 101.92 POC Glucometer 130 Random Glucose 138 H Hemoglobin A1c % Lactic Acid Calcium 8.4 L Phosphorus 2.6 Magnesium 2.2 Total Bilirubin AST ALT Alkaline Phosphatase Total Protein Albumin Lipase Urine Color Urine Appearance Urine pH Ur Specific [place] Urine Protein Urine Glucose (UA) Urine Ketones Urine Blood Urine Nitrite Urine Bilirubin Urine Urobilinogen Ur Leukocyte Esterase Urine WBC (Auto) Urine RBC (Auto) Urine Casts (Auto) U Epithel Cells (Auto) Urine Bacteria (Auto) Blood Type Antibody Screen Current Medications Generic Name Dose Route Start Last Admin Trade Name Freq PRN Reason Stop Dose Admin Potassium Chloride/Sodium Chloride 20 meq in 1,000 mls @ 125 mls/hr 09/15/18 09:00 09/15/18 11:14 1/2ns+20meq Kcl IV 125 mls/hr ASDIR [facility] Administration Insulin Aspart 1 vial 09/14/18 22:00 09/15/18 17:46 Novolog Vial Sliding Scale - SQ Not Given ACHS [facility] Protocol Ondansetron HCl 4 mg 09/14/18 21:22 Zofran Injection IVPUSH Q8H PRN NAUSEA Pantoprazole Sodium 40 mg 09/14/18 21:30 09/15/18 11:04 Protonix Iv IVPUSH 40 mg DAILY [facility] Administration ALL IMAGING REPORTS REVIEWED ASSESSMENT AND PLAN: 53 year old male PMHx DM, SBO in 2017(conservative mngmt), left inguinal hernia (repair at age 6), presents with nausea, vomiting and abdominal pain. 1) SBO -second occurrence, unclear etiology? -patient had repeat imaging today, persistent SBO -clinically improving, passed BM and flatus today -IVF, NPO -antiemetics -surgery follow-up 2) DM2 -on iss for coverage, bs controlled
[2018-09-15] MEDS: SODIUM CHLORIDE 1,000 ML IV SCH (21:02)
[2018-09-16] MEDS: SODIUM CHLORIDE 0.45%/POT 20 MEQ/1,000 ML INFUS.BAG IV SCH ×2 (05:08→13:37)
[2018-09-16] MEDS: INSULIN SLIDING SCALE (NOVOLOG) 1 VIAL SQ SCH ×3 (06:21→16:54)
[2018-09-16 07:46] LABS: BASO % 0.2 % (0-2.0); EOS % 0.8 % (0-4.5); HEMATOCRIT 38.9 % (35.4-49); HEMOGLOBIN 13.2 GM/dL (11.7-16.9); LYMPH % 32.5 % (8-40); MCH 29.9 pg (25.7-33.7); MCHC 33.9 g/dl (32.0-35.9); MEAN CELL VOLUME 88.3 fl (80-96); MONO % 10.9 % (3.8-10.2); NEUT % 55.6 % (42.8-82.8); PLATELET COUNT 275 K/MM3 (134-434); RDW 13.3 % (11.9-15.9); WHITE BLOOD COUNT 7.5 K/mm3 (4.0-10.0)
[2018-09-16 07:47] LABS: ALBUMIN 3.3 g/dl (3.4-5.0); ALK PHOS 41 U/L (45-117); ANION GAP 5 MMOL/L (8-16); BILIRUBIN,TOTAL 1.4 mg/dL (0.2-1); BLOOD UREA NITROGEN 9 mg/dL (7-18); CALCIUM 8.3 mg/dL (8.5-10.1); CHLORIDE 107 mmol/L (98-107); CHOLESTEROL 126 mg/dL (50-200); CO2 29 mmol/L (21-32); CREATININE 0.7 mg/dL (0.55-1.3); GLUCOSE,RANDOM 111 mg/dL (74-106); HDL CHOLESTEROL 37 mg/dL (40-60); MAGNESIUM 2.1 mg/dL (1.8-2.4); PHOSPHOROUS 2.3 mg/dL (2.5-4.9); POTASSIUM 4.4 mmol/L (3.5-5.1); SGOT/AST 13 U/L (15-37); SGPT/ALT 35 U/L (13-61); SODIUM 140 mmol/L (136-145); TRIGLYCERIDES 89 mg/dL (0-150)
[2018-09-16] MEDS: PANTOPRAZOLE SODIUM 40 MG VIAL IVPUSH SCH (10:36)
[2018-09-16 12:58] VITALS: BMI 30.9
--- NOTE | 2018-09-16 13:35 | PN ---
Teaching Attending Note Name of Resident: Magdalene Arias ATTENDING PHYSICIAN STATEMENT I saw and evaluated the patient. I reviewed the resident's note and discussed the case with the resident. I agree with the resident's findings and plan as documented. SUBJECTIVE: Patient has no complaints. He is tolerating clear liquids - no abdominal pain, nausea, vomiting. He had a bowel movement today. OBJECTIVE: Vital Signs Period Temp Pulse Resp BP Sys/Galindo Pulse Ox Last 24 Hr 97.6 F-98.2 F 64-80 18-20 103-141/55-77 100 HEART: S1S2, RRR LUNGS: Clear ABDOMEN: Soft, non-tender, non-distended, normal BS EXTREMITIES: No edema Laboratory Results - last 24 hr 09/15/18 09/15/18 09/16/18 17:45 21:35 06:20 WBC RBC Hgb Hct MCV MCH MCHC RDW Plt Count MPV Absolute Neuts (auto) Neutrophils % Lymphocytes % Monocytes % Eosinophils % Basophils % Nucleated RBC % Sodium Potassium Chloride Carbon Dioxide Anion Gap BUN Creatinine Creat Clearance w eGFR POC Glucometer 106 95 107 Random Glucose Calcium Phosphorus Magnesium Total Bilirubin AST ALT Alkaline Phosphatase Total Protein Albumin Triglycerides Cholesterol Total LDL Cholesterol HDL Cholesterol TSH 09/16/18 09/16/18 09/16/18 06:25 06:25 11:54 WBC 7.5 RBC 4.40 Hgb 13.2 Hct 38.9 MCV 88.3 MCH 29.9 MCHC 33.9 RDW 13.3 Plt Count 275 MPV 7.0 L Absolute Neuts (auto) 4.1 Neutrophils % 55.6 Lymphocytes % 32.5 Monocytes % 10.9 H Eosinophils % 0.8 Basophils % 0.2 Nucleated RBC % 0 Sodium 140 Potassium 4.4 Chloride 107 Carbon Dioxide 29 Anion Gap 5 L BUN 9 Creatinine 0.7 Creat Clearance w eGFR 118.89 POC Glucometer 104 Random Glucose 111 H Calcium 8.3 L Phosphorus 2.3 L Magnesium 2.1 Total Bilirubin 1.4 H AST 13 L ALT 35 Alkaline Phosphatase 41 L Total Protein 6.0 L Albumin 3.3 L Triglycerides 89 Cholesterol 126 Total LDL Cholesterol 82 HDL Cholesterol 37 L TSH 1.54 Current Medications Generic Name Dose Route Start Last Admin Trade Name Freq PRN Reason Stop Dose Admin Potassium Chloride/Sodium Chloride 20 meq in 1,000 mls @ 125 mls/hr 09/15/18 09:00 09/16/18 05:08 1/2ns+20meq Kcl IV 125 mls/hr ASDIR [facility] Administration Insulin Aspart 1 vial 09/14/18 22:00 09/16/18 12:15 Novolog Vial Sliding Scale - SQ Not Given ACHS [facility] Protocol Ondansetron HCl 4 mg 09/14/18 21:22 Zofran Injection IVPUSH Q8H PRN NAUSEA Pantoprazole Sodium 40 mg 09/14/18 21:30 09/16/18 10:36 Protonix Iv IVPUSH 40 mg DAILY [facility] Administration ASSESSMENT AND PLAN: This is a 53 year old man with a history of type 2 DM, SBO, left inguinal hernia repair who presented to the ED with nausea, vomiting, and abdominal pain. 1. SBO - Improved - KUB yesterday afternoon showed improved SB dilatation, contrast in colon - Surgery follow-up - ? exploratory surgery as there is no obvious cause of SBO 2. Type 2 DM - Continue Novolog sliding scale
--- NOTE | 2018-09-16 13:58 | PN ---
Physical Exam: SUBJECTIVE: Patient seen and examined this AM. Tolerating Clear liquid diet overnight. Small BM this AM. Denies any nausea or vomiting. OBJECTIVE: Vital Signs Period Temp Pulse Resp BP Sys/Galindo Pulse Ox Last 24 Hr 97.6 F-98.2 F 64-80 18-20 103-141/55-77 100 GENERAL: A&Ox3, NAD HEAD: NCAT EYES: PERRL, EOMI ENT: Moist mucous membranes NECK: Supple LUNGS: Diminished breath sounds at the bases, no wheezes, no crackles HEART: Regular rate and rhythm, S1, S2 without murmur ABDOMEN: Obese, Soft, nontender, nondistended, + bowel sounds, no guarding EXTREMITIES: no edema NEUROLOGICAL: Cranial nerves II through XII grossly intact SKIN: Warm, dry Laboratory Results - last 24 hr 09/16/18 09/16/18 09/16/18 06:25 06:25 11:54 WBC 7.5 RBC 4.40 Hgb 13.2 Hct 38.9 MCV 88.3 MCH 29.9 MCHC 33.9 RDW 13.3 Plt Count 275 MPV 7.0 L Absolute Neuts (auto) 4.1 Neutrophils % 55.6 Lymphocytes % 32.5 Monocytes % 10.9 H Eosinophils % 0.8 Basophils % 0.2 Nucleated RBC % 0 Sodium 140 Potassium 4.4 Chloride 107 Carbon Dioxide 29 Anion Gap 5 L BUN 9 Creatinine 0.7 Creat Clearance w eGFR 118.89 POC Glucometer 104 Random Glucose 111 H Calcium 8.3 L Phosphorus 2.3 L Magnesium 2.1 Total Bilirubin 1.4 H AST 13 L ALT 35 Alkaline Phosphatase 41 L Total Protein 6.0 L Albumin 3.3 L Triglycerides 89 Cholesterol 126 Total LDL Cholesterol 82 HDL Cholesterol 37 L TSH 1.54 Active Medications Potassium Chloride/Sodium Chloride (1/2ns+20meq Kcl) 20 meq in 1,000 mls @ 125 mls/hr IV ASDIR [facility] Last Admin: 09/16/18 13:37 Dose: 125 mls/hr Insulin Aspart (Novolog Vial Sliding Scale -) 1 vial SQ ACHS [facility]; Protocol Last Admin: 09/16/18 12:15 Dose: Not Given Ondansetron HCl (Zofran Injection) 4 mg IVPUSH Q8H PRN PRN Reason: NAUSEA Pantoprazole Sodium (Protonix Iv) 40 mg IVPUSH DAILY [facility] Last Admin: 09/16/18 10:36 Dose: 40 mg IMAGING: -CT A/P with contrast: A mid to distal small bowel obstruction is noted as discussed above. Diffuse hepatic steatosis. A 1.4 cm left adrenal nodule is seen which is nonspecific on the basis of the current exam although very likely representing an adenoma on a statistical basis. Biochemical evaluation is suggested. Direct comparison with previous studies is suggested if available from a different facility. If prior studies are not available correlation with 3 month follow-up noncontrast MRI or CT is suggested. -Abdominal XRay: Findings again compatible with small bowel obstruction with retained contrast. -Abdominal XRay: In comparison to a radiographic study performed 7 hours earlier water-soluble contrast is noted traverse the small bowel and opacify the colon. No colonic distention is seen. Improved small bowel dilatation is noted. -EKG: SINUS TACHYCARDIA, VR 102, QTc 435 ASSESSMENT/PLAN: 53 y/o M with PMHx DM, SBO (Resolved without surgery in 2017), L inguinal hernia (s/p repair at age 6), Polypectomy was admitted for SBO. #SBO--Passing Flatus and having BM -Unclear etiology -Imaging noted above -General Surgery (Dr. Hughes) consulted, appreciate rec's -Diet advanced to clear liquid--Further advancement as per surgery -1/2 NS + 20meq Kcl @ 125 mls/hr -Ondansetron PRN -Pantoprazole 40mg IV Daily -Serial abdominal exams #DM -A1c 6.8 -ISS, BGMs ACHS #FEN -1/2 NS + 20meq Kcl @ 125 mls/hr -lytes wnl -Clear Liquid diet #PPX -DVT: SCD's -GI: Pantoprazole
--- NOTE | 2018-09-16 15:29 | PN ---
Progress Note, Physician History of Present Illness: 53yo M with h/o colon polyps, deviated septum s/p nasal surgery, LIH repair at 6yo, tonsillectomy, no abdominal surgeries, h/o distal SBO 12/15 treated with NG decompression at [facility], followed by colonoscopy in and with polyp removals. He was admitted with CT with IV but no PO contrast showing multiple dilated proximal small bowel loops, mainly in left abdomen, with decompressed distal loops with concentric wall thickening of unclear significance. AXR after oral contrast was given showed initially persistent SBO picture, but yesterday pm contrast was all in colon with a few residual dilated SB loops noted. Pt has had multiple BMs, was liquid before, now getting pasty, and passing gas. Tolerating clear liquids. No pain. He notes whenever he drinks fluids, he goes to the bathroom. - Current Medication List Current Medications: Active Medications Potassium Chloride/Sodium Chloride (1/2ns+20meq Kcl) 20 meq in 1,000 mls @ 125 mls/hr IV ASDIR [facility] Last Admin: 09/16/18 13:37 Dose: 125 mls/hr Insulin Aspart (Novolog Vial Sliding Scale -) 1 vial SQ ACHS [facility]; Protocol Last Admin: 09/16/18 12:15 Dose: Not Given Ondansetron HCl (Zofran Injection) 4 mg IVPUSH Q8H PRN PRN Reason: NAUSEA Pantoprazole Sodium (Protonix Iv) 40 mg IVPUSH DAILY [facility] Last Admin: 09/16/18 10:36 Dose: 40 mg - Objective Vital Signs: Vital Signs Temperature 98.1 F 09/16/18 14:13 Pulse Rate 77 09/16/18 14:13 Respiratory Rate 20 09/16/18 14:13 Blood Pressure 138/78 09/16/18 14:13 O2 Sat by Pulse Oximetry (%) 100 09/15/18 21:00 Constitutional: Yes: Well Nourished, No Distress, Calm Eyes: Yes: Conjunctiva Clear, EOM Intact HENT: Yes: Atraumatic, Normocephalic Gastrointestinal: Yes: Normal Bowel Sounds, Soft, Distention (minimal, little tympany, less than before). No: Tenderness Extremities: No: Cool, Cyanosis Integumentary: No: Jaundice, Rash Neurological: Yes: Alert, Oriented Labs: CBC, BMP 04/18/19 06:25 09/16/18 06:25 - ....Imaging X-ray: Report Reviewed, Image Reviewed (images from last night reviewed - all contrast in colon and rectum, few residual dilated SB loops present) Problem List - Problems (1) Small bowel obstruction Assessment/Plan: unclear etiology, with abnormal appearance of distal small bowel loops on CT scan resolved with passage of enteral contrast all the way through colon and being evacuated ? related to possible IBD? pt plans to f/u with GI/Dr. Paulino next week to discuss further outpatient workup regarding SB findings on CT may benefit from CT enterography and/or capsule endoscopy? tolerating clears - advance to soft diet d/c IVF presuming he tolerates, may d/c home at discretion of medical team no indication for acute surgical intervention no need at this time for surgical followup as outpatient may need referral to PMD to establish care and follow up discussed with Dr. Arias of primary team Code(s): K56.609 - UNSP INTESTNL OBST, UNSP TO PARTIAL VERSUS COMPLETE OBST (2) Generalized abdominal pain Assessment/Plan: resolved Code(s): R10.84 - GENERALIZED ABDOMINAL PAIN (3) Vomiting alone Assessment/Plan: resolved Code(s): R11.11 - VOMITING WITHOUT NAUSEA Qualifiers: Vomiting type: unspecified Vomiting Intractability: non-intractable Qualified Code(s): R11.11 - Vomiting without nausea (4) Diarrhea Assessment/Plan: now from contrast, but resolving Code(s): R19.7 - DIARRHEA, UNSPECIFIED Qualifiers: Diarrhea type: unspecified type Qualified Code(s): R19.7 - Diarrhea, unspecified
--- NOTE | 2018-09-16 16:10 | DS ---
Physical Exam: SUBJECTIVE: Patient seen and examined this AM. Tolerating diet. Had a Small BM this AM and continues to pass flatus. Denies any nausea or vomiting. OBJECTIVE: Vital Signs Period Temp Pulse Resp BP Sys/Galindo Pulse Ox Last 24 Hr 97.6 F-98.2 F 64-77 18-20 103-141/55-78 100-100 PHYSICAL EXAM GENERAL: A&Ox3, NAD HEAD: NCAT EYES: PERRL, EOMI ENT: Moist mucous membranes NECK: Supple LUNGS: Diminished breath sounds at the bases, no wheezes, no crackles HEART: Regular rate and rhythm, S1, S2 without murmur ABDOMEN: Obese, Soft, nontender, nondistended, + bowel sounds, no guarding EXTREMITIES: no edema NEUROLOGICAL: Cranial nerves II through XII grossly intact SKIN: Warm, dry LABS Laboratory Results - last 24 hr 09/16/18 09/16/18 09/16/18 06:25 06:25 11:54 WBC 7.5 RBC 4.40 Hgb 13.2 Hct 38.9 MCV 88.3 MCH 29.9 MCHC 33.9 RDW 13.3 Plt Count 275 MPV 7.0 L Absolute Neuts (auto) 4.1 Neutrophils % 55.6 Lymphocytes % 32.5 Monocytes % 10.9 H Eosinophils % 0.8 Basophils % 0.2 Nucleated RBC % 0 Sodium 140 Potassium 4.4 Chloride 107 Carbon Dioxide 29 Anion Gap 5 L BUN 9 Creatinine 0.7 Creat Clearance w eGFR 118.89 POC Glucometer 104 Random Glucose 111 H Calcium 8.3 L Phosphorus 2.3 L Magnesium 2.1 Total Bilirubin 1.4 H AST 13 L ALT 35 Alkaline Phosphatase 41 L Total Protein 6.0 L Albumin 3.3 L Triglycerides 89 Cholesterol 126 Total LDL Cholesterol 82 HDL Cholesterol 37 L TSH 1.54 IMAGING: -CT A/P with contrast: A mid to distal small bowel obstruction is noted as discussed above. Diffuse hepatic steatosis. A 1.4 cm left adrenal nodule is seen which is nonspecific on the basis of the current exam although very likely representing an adenoma on a statistical basis. Biochemical evaluation is suggested. Direct comparison with previous studies is suggested if available from a different facility. If prior studies are not available correlation with 3 month follow-up noncontrast MRI or CT is suggested. -Abdominal XRay: Findings again compatible with small bowel obstruction with retained contrast. -Abdominal XRay: In comparison to a radiographic study performed 7 hours earlier water-soluble contrast is noted traverse the small bowel and opacify the colon. No colonic distention is seen. Improved small bowel dilatation is noted. -EKG: SINUS TACHYCARDIA, VR 102, QTc 435 HOSPITAL COURSE: Date of Admission:09/14/18 Date of Discharge: 09/16/18 53 y/o M with PMHx DM, SBO (Resolved without surgery in 2017), L inguinal hernia (s/p repair at age 6), Polypectomy was admitted for SBO. Imaging and labwork done noted above. Patient was placed on IV Hydration and treated with antiemetics and PPI. General surgery was consulted and determined there was no indication for acute surgical intervention. Patients diet was advanced and he tolerated well. His nausea, vomiting resolved and patient was able to pass flatus. During his stay, his A1c was found to be elevated. Dietary changes and weight loss were discussed in great detail. Patient was discharged home with strict instruction for follow up. Additionally, he was started on Metformin and informed to follow up with his PCP in 1 week. Minutes to complete discharge: 36 Discharge Summary Reason For Visit: SMALL BOWEL OBSTRUCTION Current Active Problems Abdominal pain (Acute) Diarrhea (Acute) Generalized abdominal pain (Acute) Small bowel obstruction (Acute) Vomiting alone (Acute) Condition: Improved - Instructions Diet, Activity, Other Instructions: You were admitted to the hospital because you had worsening abdominal pain. Imaging revealed you had a partial small bowel obstruction. You were seen by a Surgeon. We treated you with IV Fluids, Antiemetics, and a proton pump inhibitor , and your symptoms improved. Your are being discharged home. Medication Changes: 1. You are being started on Metformin 500mg twice a day--Your Hemoglobin A1c was 6.8% suggesting you have Diabetes Follow up with the following physicians: 1. PCP in one week--Dr. Parham in one week to establish care 2. Imaging revealed you have a 1.4cm left adrenal nodule. Biochemical evaluation and a 3 month follow-up noncontrast MRI or CT is suggested. Please further discuss this with your primary care physician. Please watch your diet and only eat foods low in sugar and carbohydrates; Weight loss will also help manage your diabetes Please return to the ER if you have any signs or symptoms of chest pain, shortness of breath, uncontrollable fever, chills, nausea, vomiting, numbness, tingling, or weakness in any part of your body, changes in vision, slurred speech, changes in speech/gait, or dizziness. Please return to the ER if symptoms persist, worsen, or new symptoms arise. Referrals: Jace Parham MD [Staff Physician] - Disposition: HOME - Home Medications Comprehensive Discharge Medication List: Ambulatory Orders metFORMIN HCL [Metformin HCl] 500 mg PO BID #60 tablet 09/16/18 This patient is new to me today: No Emergency Visit: Yes ED Registration Date: 09/14/18 Care time: The patient presented to the Emergency Department on the above date and was hospitalized for further evaluation of their emergent condition. Critical Care patient: No - Discharge Referral Referred to [facility] No
[2018-09-16 18:05] VITALS: BP 130/70; PULSE 82; TEMP 98.4
== END 2018-09-16 18:48 | disposition home or self-care (01) | DRG 390 ==
LOC: JER 18:06 → JERBED 20:24 → J5S 23:41
PROVIDERS: ADMIT Internal Medicine; ATTEND Internal Medicine
DX: K56.609 Unspecified intestinal obstruction, unspecified as to partial versus complete obstruction (principal); Z86.010 Personal history of colon polyps; E11.9 Type 2 diabetes mellitus without complications; I10 Essential (primary) hypertension
CPT/HCPCS: 36415; 74018-TC-FY; 74019-TC-FY; 74177-TC; 80048; 80053; 80061; 81003; 82962; 83036; 83605; 83690; 83721; 83735; 84100; 84443; 85025; 85610; 86850; 86900; 86901; 90688; 93005; 93010; 99285-25; G0008; J3480; J7030

== ENCOUNTER 2020-06-18 19:27 | Inpatient (IN) | payer OTHER ==
[2020-06-18 19:33] VITALS: BMI 28.8
[2020-06-18] MEDS ORDERED: SODIUM CHLORIDE 1,000 ML IV STA (21:16)
[2020-06-18] MEDS ORDERED: ONDANSETRON 4 MG/2 ML VIAL ONE (21:20)
[2020-06-18] MEDS ORDERED: ONDANSETRON 4 MG/2 ML VIAL IVPUSH ONE (21:30)
[2020-06-18 22:01] LABS: BASO % 0.3 % (0-2.0); EOS % 0.1 % (0-4.5); HEMOGLOBIN 16.4 GM/dL (11.7-16.9); LYMPH % 10.6 % (8-40); MCH 30.3 pg (25.7-33.7); MCHC 34.2 g/dl (32.0-35.9); MEAN CELL VOLUME 88.6 fl (80-96); MEAN PLT VOLUME 7.4 fl (7.5-11.1); MONO % 8.2 % (3.8-10.2); NEUT % 80.8 % (42.8-82.8); PLATELET COUNT 337 K/MM3 (134-434); RBC 5.42 M/mm3 (4.00-5.60); RDW 13.6 % (11.9-15.9); WHITE BLOOD COUNT 10.8 K/mm3 (4.0-10.0)
[2020-06-18 22:23] LABS: CHLORIDE 102 mmol/L (98-107); POTASSIUM 4.3 mmol/L (3.5-5.1); SODIUM 137 mmol/L (136-145)
[2020-06-18 22:25] LABS: ALBUMIN 4.1 g/dl (3.4-5.0); ANION GAP 8 MMOL/L (8-16); BLOOD UREA NITROGEN 11.1 mg/dL (7-18); CALCIUM 9.4 mg/dL (8.5-10.1); CO2 27 mmol/L (21-32); LIPASE 53 U/L (73-393)
[2020-06-18 22:26] LABS: GLUCOSE,RANDOM 166 mg/dL (74-106)
[2020-06-18 22:28] LABS: CREATININE 0.7 mg/dL (0.55-1.3); SGOT/AST 24 U/L (15-37); SGPT/ALT 45 U/L (13-61)
[2020-06-18 22:30] LABS: BILIRUBIN,TOTAL 1.1 mg/dL (0.2-1); TOT PROT 7.6 g/dl (6.4-8.2)
[2020-06-18 22:31] LABS: ALK PHOS 55 U/L (45-117)
[2020-06-18] MEDS ORDERED: morphine CARPU-JECT 4 MG/1 ML DISP.SYRIN IVPUSH ONE (23:49)
[2020-06-18] MEDS ORDERED: morphine SULFATE 4 MG/ML VIAL ONE (23:53)
[2020-06-19] MEDS ORDERED: SODIUM CHLORIDE 1,000 ML IV SCH (04:00)
[2020-06-19] MEDS ORDERED: ACETAMINOPHEN 325 MG TABLET (FP) PO PRN (04:01)
[2020-06-19] MEDS ORDERED: MORPHINE SULFATE 2 MG/ML VIAL IVPUSH PRN (04:02)
[2020-06-19] MEDS ORDERED: ONDANSETRON 4 MG/2 ML VIAL IVPUSH PRN (04:02)
[2020-06-19 04:03] LABS: URINE APPEARANCE CLEAR; URINE BILIRUBIN NEGATIVE (NEGATIVE); URINE COLOR YELLOW; URINE GLUCOSE (UA) 1+ (NEGATIVE); URINE KETONE 1+ (NEGATIVE); URINE LEUK ESTERASE NEGATIVE (NEGATIVE); URINE NITRITE NEGATIVE (NEGATIVE); URINE PROTEIN TRACE (NEGATIVE)
[2020-06-19] MEDS: INSULIN SLIDING SCALE (NOVOLOG) 1 VIAL SQ SCH ×3 (07:53→16:58)
[2020-06-19 09:51] VITALS: TEMP 99.8
[2020-06-19] MEDS ORDERED: LISINOPRIL 10 MG TABLET PO SCH (10:00)
[2020-06-19] MEDS ORDERED: ENOXAPARIN NA (PORCINE) 40 MG/0.4 ML DISP.SYRIN SQ SCH (10:00)
[2020-06-19] MEDS ORDERED: LISINOPRIL 5 MG TABLET ONE (10:51)
[2020-06-19] MEDS ORDERED: ENOXAPARIN NA (PORCINE) 40 MG/0.4 ML DISP.SYRIN SQ ONE (10:51)
[2020-06-19] MEDS ORDERED: INSULIN SLIDING SCALE (NOVOLOG) 1 VIAL SQ ONE (11:48)
[2020-06-19 14:21] LABS: BASO % 0.3 % (0-2.0); EOS % 0.1 % (0-4.5); HEMATOCRIT 44.4 % (35.4-49); LYMPH % 21.6 % (8-40); MCH 29.9 pg (25.7-33.7); MCHC 33.7 g/dl (32.0-35.9); MEAN CELL VOLUME 88.9 fl (80-96); MEAN PLT VOLUME 6.9 fl (7.5-11.1); MONO % 17.6 % (3.8-10.2); NEUT % 60.4 % (42.8-82.8); PLATELET COUNT 291 K/MM3 (134-434); RDW 12.8 % (11.9-15.9); WHITE BLOOD COUNT 7.1 K/mm3 (4.0-10.0)
[2020-06-19 14:25] LABS: INR 1.22 (0.83-1.09); PROTHROMBIN TIME (PATIENT) 14.7 SEC (9.7-13.0)
[2020-06-19 14:28] LABS: ACTIVATED PTT 29.9 SECONDS (25.2-36.5)
[2020-06-19 15:03] LABS: ALBUMIN 3.6 g/dl (3.4-5.0); BILIRUBIN,TOTAL 1.2 mg/dL (0.2-1); BLOOD UREA NITROGEN 10.8 mg/dL (7-18); CALCIUM 8.7 mg/dL (8.5-10.1); CREATININE 0.7 mg/dL (0.55-1.3); PHOSPHOROUS 3.3 mg/dL (2.5-4.9); TOT PROT 6.4 g/dl (6.4-8.2)
[2020-06-19 20:11] VITALS: BP 139/79; PULSE 77
[2020-06-20] MEDS ORDERED: LISINOPRIL 5 MG TABLET PO SCH (05:54)
== END 2020-06-19 23:19 | disposition left against medical advice (07) | DRG 390 ==
LOC: JER 19:27 → JERBED 06-19 02:50
PROVIDERS: ADMIT Internal Medicine; ATTEND Internal Medicine
DX: K56.609 Unspecified intestinal obstruction, unspecified as to partial versus complete obstruction (principal); R11.2 Nausea with vomiting, unspecified; E11.9 Type 2 diabetes mellitus without complications; I10 Essential (primary) hypertension
CPT/HCPCS: 36415; 74019-TC-FY; 74177-TC; 80053; 81003; 82962; 83036; 83690; 83735; 84100; 84484; 85025; 85610; 85730; 86850; 86900; 86901; 93005; 93010; 99285-25; C9803; U0003